=== PATIENT | male | born 1970 | race Caucasian/White ===

== ENCOUNTER 2023-02-18 04:51 | Day surgery (SDC) | payer OTHER ==
[2023-02-01 08:32] VITALS: BMI 26.6
[2023-02-18 10:06] VITALS: TEMP 98.2
[2023-02-18 10:49] VITALS: BP 120/65; PULSE 65; RESP 18
== END 2023-02-18 11:14 | disposition home or self-care (01) ==
LOC: JASU-ENDO 04:51
PROVIDERS: ATTEND Student in an Organized Health Care Education/Training Program
PROC: 0DBM8ZX Excision of Descending Colon, Via Natural or Artificial Opening Endoscopic, Diagnostic (ICD-10-PCS; principal; 2023-02-18 09:30)
DX: Z12.11 Encounter for screening for malignant neoplasm of colon (principal); K63.5 Polyp of colon
CPT/HCPCS: 88305-TC